=== PATIENT | male | born 1960 | race Caucasian/White ===

== ENCOUNTER 2022-01-23 10:58 | Emergency (ER) | payer MEDICAID ==
[2022-01-23] MEDS ORDERED: TETANUS/DIPHTHERIA/PERTUSSIS 0.5 ML SYRINGE IM ONE (12:29)
--- NOTE | 2022-01-23 12:31 | ED Physician Documentation ---
History of Present Illness - Stated complaint Stated Complaint: THUMB LAC - Chief complaint Chief Complaint: Laceration - Additonal information Additional information: 61-year-old male presents emergency department for evaluation of left thumb laceration sustained when using a table saw. He is left-hand dominant. Last tetanus 2014. Review of Systems Constitutional: reports: Reviewed and negative Cardiac: reports: Reviewed and negative Respiratory: reports: Reviewed and negative Skin: reports: Laceration (s) PD PAST MEDICAL HISTORY - Past Medical History Past Medical History: Yes Cardiovascular: Hypertension Musculoskeletal: Osteoarthritis, Chronic back pain - Past Surgical History Past Surgical History: Yes Ortho: Spine surgery HEENT: Tonsil/Adenoidectomy, Other - Present Medications Home Medications: Ambulatory Orders Medication Instructions Recorded Confirmed cephALEXin [Keflex] 500 mg PO Q6H #28 cap 01/23/22 oxyCODONE [Roxicodone] 5 mg PO TID PRN #20 tablet 01/23/22 - Allergies Allergies/Adverse Reactions: Allergies Allergy/AdvReac Type Severity Reaction Status Date / Time dexamethasone AdvReac Anxiety Verified 12/09/14 18:43 gabapentin [From Neurontin] AdvReac Anxiety Verified 12/09/14 18:43 - Social History Does the pt smoke?: No Smoking Status: Never smoker Does the pt drink ETOH?: No Does the pt have substance abuse?: No - Immunizations Immunizations are current?: No Immunizations: TDAP >10years/unknown PD ED PE EXPANDED - Extremities Extremities: Left finger(s) (Diagonal laceration through the tip of the left thumb that extends through the nailbed. Active bleeding despite pressure.) Results - Vitals Vitals: Vital Signs - 24 hr 01/23/22 11:13 Temperature 37.1 C Heart Rate 79 Respiratory 18 Rate Blood Pressure 240/145 H O2 Saturation 96 Oxygen O2 Source Room air - Rads (name of study) left thumb Radiology: EMP read indepedently (Distal phalanx fracture tuft) Procedures - General procedure General procedure: After adequate anesthesia was achieved on the left thumb using 1% lidocaine the wound was thoroughly cleansed with chlorhexidine and normal saline. We did use a small amount of electrocautery to stop the active bleeders. After observing the wound for a few moments we noted that there was significantly less bleeding. Unfortunately this wound is not amenable to primary closure. Small amount of Surgicel was placed directly over the wound to help continue with hemostasis it was then wrapped with gauze. Patient tolerated this well. PD MEDICAL DECISION MAKING - ED course Complexity details: reviewed results, considered differential, d/w patient ED course: 61-year-old male presents emergency department for evaluation of a left thumb laceration sustained when using a table saw. This is a diagonal distal tip soft tissue injury. X-ray does Does show small distal phalanx/tuft fracture. Patient was given a gram of ceftriaxone here in the ER and will be discharged with Keflex. Unfortunately this wound was not amenable to primary closure or oversew. I did use a small amount of electrocautery to achieve most of the hemostasis and then Surgicel was placed over the wound. Wound was then bandaged. Tetanus was updated today. I discussed with patient the routine wound care and usual return precautions for concerns of infection. I am prescribing a short course of short-acting opioid pain medication for this patient. 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 I have discussed that the opioids are for short term therapy only, and will not be refilled from the ED. Departure - Departure Clinical Impression: Gustavo type 1 traumatic amputation of tip of thumb, Fracture of distal phalanx of finger of left hand, Open fracture Traumatic amputation of tip of left thumb Qualifiers: Encounter type: initial encounter Qualified Code(s): S68.012A - Complete traumatic metacarpophalangeal amputation of left thumb, initial encounter Condition: Stable Record reviewed to determine appropriate education?: Yes Instructions: ED Fx Finger Open Ch Follow-Up: Kadeem Olivo MD [Provider Admit Priv/Credential] - Prescriptions: cephALEXin [Keflex] 500 mg PO Q6H #28 cap oxyCODONE [Roxicodone] 5 mg PO TID PRN #20 tablet PRN Reason: Pain Comments: You are seen today in the emergency department after you partially amputated the tip of your thumb on a table saw. Unfortunately the x-ray shows that you do have a small tuft or distal phalanx fracture. This is qualified as an open fracture because of the laceration. This puts you at higher risk to develop infection within the bone. Unfortunately the wound is not amenable to primary closure or oversew. We did place a product on the wound called Surgicel which should help create a clot over the next 24 hours. This should be left in place. Over the next week to 10 days it will slowly get absolved or it to be gently trimmed away. In 24 hours I would like you to have your dressing change. You can return to the emergency department to have this done or can be done at any local walk-in clinic. In general you will need to gently cleanse the wound with warm soap and water, then apply gauze and a bandage. This wound will need to heal from the inside out and will take several weeks to do so You need to talk to your primary care doctor to get an emergent referral to orthopedics. I have given you the name of Dr. Olivo our local orthopedic surgeon who should be able to evaluate and help you with your wound A prescription for Keflex has been sent to the [facility] in [place]. A limited prescription for pain medicine has also been sent. At any point you have concerns of infection, fevers, uncontrolled pain then please return to the ER for a second evaluation.
[2022-01-23] MEDS ORDERED: cefTRIAXone 1 GM VIAL IM STA (13:10)
[2022-01-23] MEDS ORDERED: LIDOCAINE 1% 2 ML VIAL MC ONE (13:10)
--- NOTE | 2022-01-23 13:15 | XRAY Report ---
PROCEDURE: Finger(s) LT INDICATIONS: thumb laceration vs saw blade TECHNIQUE: AP hand, 3 views of the first finger(s) acquired. COMPARISON: None FINDINGS: Bones: There is amputation of the tuft of the distal first phalanx.. No suspicious bony lesions. Soft tissues: No suspicious soft tissue calcifications. Distal first phalanx soft tissue edema is p resent. Lacerations are also present. IMPRESSION: Distal first digit tuft amputation with soft tissue laceration. Reviewed by: Vianey Aguila MD on 01/23/2022 1:14 PM PDT Approved by: Vianey Aguila MD on 01/23/2022 1:14 PM PDT Station ID: [id number]
[2022-01-23 13:45] VITALS: BP 180/98
== END 2022-01-23 13:46 | disposition home or self-care (01) ==
LOC: ED 10:58
DX: S68.012A Complete traumatic metacarpophalangeal amputation of left thumb, initial encounter (principal); W29.8XXA Contact with other powered hand tools and household machinery, initial encounter; I10 Essential (primary) hypertension; Z23 Encounter for immunization; Z71.85 Encounter for immunization safety counseling
CPT/HCPCS: 90471; 96372; 99283